=== PATIENT | male | born 1985 | race Two or more races ===

== ENCOUNTER 2024-11-14 02:45 | Emergency (ER) | payer SELFPAY ==
[~2024-11-14] VITALS: Ht 154.9 cm; Wt 75.0 kg
[2024-11-14 02:47] VITALS: BP 117/64; PULSE 72; RESP 16; TEMP 98; O2SAT 100
[2024-11-14] MEDS: ACETAMINOPHEN 325 MG TABLET PO ONE (03:05)
[2024-11-14] MEDS: IBUPROFEN 400 MG TABLET PO ONE (03:05)
== END 2024-11-14 03:37 | disposition home or self-care (01) ==
LOC: EMS 02:45
DX: S50.02XA Contusion of left elbow, initial encounter (principal); Z72.89 Other problems related to lifestyle; Y04.8XXA Assault by other bodily force, initial encounter; Y93.89 Activity, other specified; Y92.89 Other specified places as the place of occurrence of the external cause; Y99.8 Other external cause status
CPT/HCPCS: 99283